=== PATIENT | male | born 2000 | race Caucasian/White ===

== ENCOUNTER 2024-10-29 08:37 | Emergency (ER) | payer BC, SELFPAY ==
[2024-10-29 08:42] VITALS: BP 137/76
--- NOTE | 2024-10-29 10:12 | EDRN ---
Fe CLAY in room w/ pt at this time.
--- NOTE | 2024-10-29 10:21 | ED.GENMED ---
History of Present Illness
General
Chief Complaint: Abdominal Symptoms
Source: patient
Exam Limitations: none
Time Seen by Provider: 10/29/24 10:09
History of Present Illness
History of Present Illness:
24-year-old male presents complaining of onset of nausea vomiting and diarrhea starting last evening and uncontrollably since then. He denies significant abdominal pain. He states he had fever this morning. He is healthy otherwise. No blood in
the vomit or the stool. No known sick contacts.
Past History
Past History
ED Past Medical History: None
Social History
Tobacco: Non-smoker
Personal: Single
Living: with family
Employment: Student
Phy Exam
Physical Exam
Physical Exam:
General: Well-appearing male no acute respiratory distress
HEENT: Normocephalic atraumatic
Heart: Regular rate and rhythm
Lungs: Clear no wheeze
Abdomen is soft nontender nondistended no guarding or rebound
Skin: Warm no rash
Course
Orders/Labs/Results
Orders:
Orders
10/29/24 10:18
0.9% Sodium Chloride 1000 ml [Nss] 1,000 ml IV BOLUS
Ondansetron Injectable [Zofran] 4 mg IV NOW STA
10/29/24 10:55
Complete Blood Count/With Diff Urgent
Comprehensive Metabolic Panel Urgent
Lipase Urgent
Abnormal Lab Results
10/29/24
10:55
WBC 11.8 H 10^3/uL
(4.8-10.8)
RBC 6.32 H 10^6/uL
(4.70-6.10)
Hgb 12.4 L g/dL
(13.0-18.0)
MCV 63.0 L fL
(80.0-94.0)
MCH 19.6 L pg
(27.0-31.0)
MCHC 31.2 L g/dL
(33.0-37.0)
RDW 17.4 H %
(11.5-14.5)
Absolute Neuts (auto) 10.5 H 10^3/uL
(1.4-6.5)
Absolute Lymphs (auto) 0.4 L 10^3/uL
(1.2-3.4)
Absolute Monos (auto) 0.8 H 10^3/uL
(0.1-0.6)
Neutrophils % 89.0 H %
(42.2-75.2)
Lymphocytes % 3.3 L %
(20.5-51.1)
BUN 22 H mg/dl
(9-20)
Glucose 104 H mg/dl
(70-99)
Total Bilirubin 2.9 H mg/dl
(0.2-1.3)
10/29/24 10:55
10/29/24 10:55
Vital Signs
Initial and Last Documented VS:
Initial Vital Signs
Temp Pulse Resp BP Pulse Ox
98.6 F 106 16 137/76 97
10/29/24 08:42 10/29/24 08:42 10/29/24 08:42 10/29/24 08:42 10/29/24 08:42
Last Documented Vital Signs
Temp Pulse Resp BP Pulse Ox
98.6 F 100 16 95/67 97
10/29/24 08:42 10/29/24 13:02 10/29/24 13:02 10/29/24 13:02 10/29/24 13:02
MDM/Problems Addressed
Differential Diagnosis Includes:
Nausea vomiting diarrhea onset last night question possible viral illness versus foodborne illness versus electrolyte abnormality. Will check labs hydrate give Zofran
*Pulse Oximetry
SaO2: 97
Oxygen Mode of Delivery: Room air
Patient hypoxic: no
*Critical Care Note
Total Time (30-74mins, 75-104mins- exclusive of procedures): Not Applicable
Update Note
Update Note:
Patient feeling better upon reassessment. Now tolerating oral fluids. Suspect underlying either foodborne or viral illness. He is stable for discharge
ED Attending Note
-
Portions of this chart may have been created with voice recognition software.� Occasional wrong word or��sound alike� substitutions may have occurred due to the inherent limitations of voice recognition software.
Discharge Plan
Departure
Patient Disposition: Home (Routine Discharge)
Date of Disposition: 10/29/24
Time of Disposition: 13:26
Patient with high blood pressure during this ER visit?: No
Discharge Problem:
Vomiting
Instructions: Nausea and Vomiting, Adult (DC)
Prescriptions:
New
ondansetron 4 mg tablet,disintegrating
4 mg PO Q8H PRN (Reason: nausea and vomiting) Qty: 10 0RF
Referrals:
Tyler Michaels MD [Family Provider, Pediatric Medicine]
Activity Restrictions/Additional Instructions:
Drink plenty clear liquids. Use Zofran if needed for nausea. Start with a bland diet and advance as tolerated.
Interventions
Interventions:
*Risk Screen - Suicide Last Done: 10/29/24 11:06
*General Assessment Last Done: 10/29/24 11:06
*Neglect/Abuse Screening Last Done: 10/29/24 11:06
*ED- Fall Risk Assessment Last Done: 10/29/24 11:06
*ED COVID-19 Vaccine History Last Done: 10/29/24 11:06
EJ-Hlrrwf-Safgxtbkoa Assessment Last Done: 10/29/24 11:06
Discharge Date and Time
Print Language: PORTUGUESE
[2024-10-29] MEDS: NSS 1000 IV (10:56)
[2024-10-29] MEDS: ZOFRAN 4 MG IV (11:02)
[2024-10-29 11:08] VITALS: BMI 25.6
[2024-10-29 11:10] VITALS: BP 102/66
[2024-10-29 11:19] LABS: Hematocrit 39.8 % (39.0-52.0); Hemoglobin 12.4 g/dL (13.0-18.0); Mean Corp Hgb Conc. 31.2 g/dL (33.0-37.0); Mean Corpuscular Volume 63.0 fL (80.0-94.0); Nucleated Red Blood Cells % 0 % (-); Platelet Count 145 10^3/uL (130-400); Red Cell Dist. Width 17.4 % (11.5-14.5)
[2024-10-29 11:36] LABS: ALT (SGPT) 40 U/L (0-50); AST (SGOT) 31 U/L (17-59); Albumin 5.0 g/dl (3.5-5.0); Alkaline Phosphatase 38 U/L (38-126); Blood Urea Nitrogen 22 mg/dl (9-20); Calcium 9.0 mg/dl (8.4-10.2); Carbon Dioxide 25 mmol/L (22-30); Chloride 106 mmol/L (98-107); Estimated Creatinine Clearance 116 ml/min; Glucose 104 mg/dl (70-99); Lipase 32 U/L (23-300); Potassium 4.3 mmol/L (3.5-5.1); Sodium 140 mmol/L (135-145); Total Protein 7.3 g/dl (6.3-8.2); eGFR > 60.00
--- NOTE | 2024-10-29 12:26 | EDRN ---
Pt asking to drink, has not vomited and has no nausea. Fe CLAY said OK and pt given some water and was told to drink small amounts only every few minutes.
--- NOTE | 2024-10-29 12:28 | EDRN ---
Fe Newman PA in to see pt at this time and brought pt ice to have.
[2024-10-29 13:02] VITALS: BP 95/67
== END 2024-10-29 13:46 | disposition home or self-care (01) ==
LOC: EMR 08:37
PROVIDERS: Physician Assistant; EMERGENCY PHYSICIAN Student in an Organized Health Care Education/Training Program; FAMILY PHYSICIAN Pediatrics Adolescent Medicine
DX: R11.2 Nausea with vomiting, unspecified (principal); R19.7 Diarrhea, unspecified; R50.9 Fever, unspecified
CPT/HCPCS: 99283; 96374; 96361; 80053; 83690; 85025